=== PATIENT | female | born 1955 | race Caucasian/White ===

== ENCOUNTER 2017-09-26 15:17 | Inpatient (IN) | payer BC, MEDICAID ==
[~2017-09-26] VITALS: Ht 152.4 cm; Wt 69.9 kg
[2017-09-26 15:42] VITALS: BP 118/92
--- NOTE | 2017-09-26 16:19 | Diagnostic Imaging Report ---
Indication: Dyspnea Comparison: None A single view chest radiograph was obtained. Findings: Lungs are clear. Lower thoracic and upper lumbar fusion kaity multilevel pedicle screws noted. Bones are osteopenic. Heart is borderline enlarged. IMPRESSION: No acute disease
[2017-09-26 16:53] LABS: BASOPHILS % (AUTO) 1.2 % (0.0-2.0); EOSINOPHILS % (AUTO) 5.2 % (0.0-3.0); HEMATOCRIT 42.6 % (37.0-47.0); HEMOGLOBIN 13.7 G/DL (12.0-16.0); LYMPHOCYTES % (AUTO) 29.7 % (20.0-45.0); MEAN CORPUSCULAR VOLUME 93 FL (80-99); MONOCYTES % (AUTO) 8.7 % (1.0-10.0); NEUTROPHILS % (AUTO) 55.1 % (45.0-75.0); PLATELET COUNT 242 K/UL (150-450); RED BLOOD COUNT 4.56 M/UL (4.20-5.40); RED CELL DISTRIBUTION WIDTH 14.4 % (11.6-14.8); WHITE BLOOD COUNT 8.7 K/UL (4.8-10.8)
[2017-09-26 17:03] LABS: ANION GAP 3 mmol/L (5-15); BLOOD UREA NITROGEN 18 mg/dL (7-18); CALCIUM 9.1 MG/DL (8.5-10.1); CARBON DIOXIDE 34 MMOL/L (21-32); CHLORIDE 100 MMOL/L (98-107); CREATININE 0.7 MG/DL (0.55-1.30); POTASSIUM 5.5 MMOL/L (3.5-5.1); SODIUM 137 MMOL/L (136-145)
[2017-09-26 17:16] LABS: ALANINE AMINOTRANSFERASE 40 U/L (12-78); ALBUMIN 3.3 G/DL (3.4-5.0); ALBUMIN/GLOBULIN RATIO 0.8 (1.0-2.7); ALKALINE PHOSPHATASE 147 U/L (46-116); ASPARTATE AMINO TRANSFERASE 53 U/L (15-37); BILIRUBIN,TOTAL 0.3 MG/DL (0.2-1.0); CREATINE KINASE 162 U/L (26-308)
[2017-09-26] MEDS ORDERED: CENTRUM SILVER1 EAC6 PO (18:18)
[2017-09-26] MEDS ORDERED: DOXEPIN HCL25 MG ORAL (18:18)
[2017-09-26] MEDS ORDERED: AZELASTINE HCL6 ML OP (18:18)
[2017-09-26] MEDS ORDERED: ESTAZOLAM2 MG PO (18:18)
[2017-09-26] MEDS ORDERED: OMEPRAZOLE20 M2 ORAL (18:18)
[2017-09-26] MEDS ORDERED: HYDROCODON-ACE1 EA13 ORAL (18:18)
[2017-09-26] MEDS ORDERED: DOCUSATE SODIU100 MG ORAL (18:18)
[2017-09-26] MEDS ORDERED: KLONOPIN0.5 MG ORAL (18:18)
[2017-09-26] MEDS ORDERED: BUTRANS1 EAC1 TD (18:18)
[2017-09-26] MEDS ORDERED: VENLAFAXINE HCL75 MG ORAL (18:18)
[2017-09-26] MEDS ORDERED: ACETAMINOPHEN-1 EAC4 ORAL (18:18)
[2017-09-26] MEDS ORDERED: ATENOLOL25 MG ORAL (18:18)
[2017-09-26] MEDS ORDERED: ZYRTEC10 MG ORAL (18:18)
[2017-09-26] MEDS ORDERED: LYRICA75 M1 ORAL (18:18)
[2017-09-26] MEDS ORDERED: WELLBUTRIN XL150 M3 ORAL (18:18)
[2017-09-26] MEDS ORDERED: QUETIAPINE FUMA50 MG ORAL (18:18)
[2017-09-26] MEDS ORDERED: LEVOTHYROXINE112 MCG ORAL (18:18)
[2017-09-26] MEDS ORDERED: METOCLOPRA10 MG/10 M ORAL (18:18)
[2017-09-26 18:23] VITALS: BP 123/87
--- NOTE | 2017-09-26 20:00 | Emergency Room Report ---
History of Present Illness General Chief Complaint: Dyspnea/Respdistress Source: Patient Present Illness HPI Patient presents with complaints of shortness of breath Hallucinations Patient's primary physician had referred the patient to a home furnishings sales representative Patient was found to be hypoxic and sent to the ER Here the patient denies any chest pain however does feel short of breath especially with exertion patient has had significant kyphosis with previous back trauma and reports several surgeries Patient also reports that she has been trying to get set up for further surgeries Denies any abdominal pain denies any focal weakness Denies any recent travel or pleurisy Patient does currently 'vape' Allergies: Coded Allergies: ERYTHROMYCIN BASE (Verified Allergy, Unknown, 09/26/17) IBUPROFEN (Verified Allergy, Unknown, 09/26/17) PENICILLINS (Verified Allergy, Unknown, 09/26/17) SULFAMETHOXAZOLE (Verified Allergy, Unknown, 09/26/17) TETRACYCLINES (Verified Allergy, Unknown, 09/26/17) TRIMETHOPRIM (Verified Allergy, Unknown, 09/26/17) Patient History Past Medical History: see triage record Pertinent Family History: none Reviewed Nursing Documentation: PMH: Agreed; PSxH: Agreed Nursing Documentation-PMH Past Medical History: No History, Except For Hx Gastrointestinal Problems: Yes - GERD Hx Neurological Problems: Yes - Depression Review of Systems All Other Systems: negative except mentioned in HPI Physical Exam Vital Signs Date Time Temp Pulse Resp B/P (MAP) Pulse Ox O2 Delivery O2 Flow Rate FiO2 09/26/17 15:26 98.9 69 14 118/92 80 Room Air 99.0 09/26/17 15:42 3.0 Sp02 EP Interpretation: reviewed, normal, abnormal - Interpreted as low at 80% , on 2 L nasal cannula patient saturates at 94% which is normal Head: normocephalic, atraumatic Eyes: bilateral eye PERRL ENT: hearing grossly normal, normal pharynx Neck: other - Patient has significant kyphosis Respiratory: crackles - In both lower lobes no obvious retraction Cardiovascular #1: normal peripheral pulses, no edema, no gallop Gastrointestinal: non tender, soft Musculoskeletal: other - Patient has significant kyphosis with also scoliosis, 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 Neurologic: alert, oriented x3, responsive Skin: normal color, no rash Lymphatic: no adenopathy Medical Decision Making Diagnostic Impression: Primary Impression: Dyspnea Additional Impression: Hypoxia ER Course Patient is a fairly complex patient with multiple differential to consideration including but not limited to cardiac cardiopulmonary and vascular emergencies Patient's presentation is concerning given the hypoxia ABG and CT imaging is obtained there is no evidence of central pulmonary embolism however radiology did contact regarding what appears to be unstable spine please refer to the CT report Clinically the patient has had significant recent medical history including multiple surgeries Hypoxia is unlikely related to acute procedure Patient does show CO2 retention At this time requires admission and further inpatient care patient appears to have compensated somewhat and BiPAP was not emergently ordered Labs Test 09/26/17 16:24 09/26/17 16:33 White Blood Count 8.7 K/UL (4.8-10.8) Red Blood Count 4.56 M/UL (4.20-5.40) Hemoglobin 13.7 G/DL (12.0-16.0) Hematocrit 42.6 % (37.0-47.0) Mean Corpuscular Volume 93 FL (80-99) Mean Corpuscular Hemoglobin 30.0 PG (27.0-31.0) Mean Corpuscular Hemoglobin Concent 32.1 G/DL (32.0-36.0) Red Cell Distribution Width 14.4 % (11.6-14.8) Platelet Count 242 K/UL (150-450) Mean Platelet Volume 6.8 FL (6.5-10.1) Neutrophils (%) (Auto) 55.1 % (45.0-75.0) Lymphocytes (%) (Auto) 29.7 % (20.0-45.0) Monocytes (%) (Auto) 8.7 % (1.0-10.0) Eosinophils (%) (Auto) 5.2 % (0.0-3.0) Basophils (%) (Auto) 1.2 % (0.0-2.0) Sodium Level 137 MMOL/L (136-145) Potassium Level 5.5 MMOL/L (3.5-5.1) Chloride Level 100 MMOL/L (98-107) Carbon Dioxide Level 34 MMOL/L (21-32) Anion Gap 3 mmol/L (5-15) Blood Urea Nitrogen 18 mg/dL (7-18) Creatinine 0.7 MG/DL (0.55-1.30) Estimat Glomerular Filtration Rate > 60 mL/min (>60) Glucose Level 86 MG/DL (74-106) Calcium Level 9.1 MG/DL (8.5-10.1) Total Bilirubin 0.3 MG/DL (0.2-1.0) Aspartate Amino Transf (AST/SGOT) 53 U/L (15-37) Alanine Aminotransferase (ALT/SGPT) 40 U/L (12-78) Alkaline Phosphatase 147 U/L (46-116) Total Creatine Kinase 162 U/L (26-308) Creatine Kinase MB 3.0 NG/ML (0.0-3.6) Creatine Kinase MB Relative Index 1.8 Troponin I 0.000 ng/mL (0.000-0.056) Pro-B-Type Natriuretic Peptide 113 pg/mL (0-125) Total Protein 7.7 G/DL (6.4-8.2) Albumin 3.3 G/DL (3.4-5.0) Globulin 4.4 g/dL Albumin/Globulin Ratio 0.8 (1.0-2.7) Lipase 126 U/L (73-393) Arterial Blood pH 7.350 (7.350-7.450) Arterial Blood Partial Pressure CO2 63.5 mmHg (35.0-45.0) Arterial Blood Partial Pressure O2 58.0 mmHg (75.0-100.0) Arterial Blood HCO3 34.5 mmol/L (22.0-26.0) Arterial Blood Oxygen Saturation 88.1 % (92.0-98.0) Arterial Blood Base Excess 6.7 Erick Test Positive Rhythm Strip Diag. Results EP Interpretation: yes Rate: 88 Rhythm: NSR, no PVC's, no ectopy Chest X-Ray Diagnostic Results Chest X-Ray Diagnostic Results : Chest X-Ray Ordered: Yes # of Views/Limited/Complete: 1 View Indication: Chest Pain EP Interpretation: Yes Interpretation: no consolidation, no effusion, no pneumothorax Impression: No acute disease Electronically Signed by: Arleth Perez, DO CT/MRI/US Diagnostic Results CT/MRI/US Diagnostic Results : Impression CTA thorax no central pulmonary ambles him kyphosis at T9-T10 step-off and associated spinal stenosis standing of the posterior elements widening of the right facet screws from the spinal fixation extend through the disc space with surrounding lucencies could suggest underlying loosening or infection fragmentation/fractures of uncertain chronicity Last Vital Signs Date Time Temp Pulse Resp B/P (MAP) Pulse Ox O2 Delivery O2 Flow Rate FiO2 09/26/17 18:35 98.9 86 14 123/87 96 Nasal Cannula 2.0 98.9 Status: improved Disposition: ADMITTED INPATIENT Condition: Serious Referrals: NON PHYSICIAN (PCP) Arleth Perez DO Sep 26, 2017 20:00
[2017-09-26] MEDS ORDERED: Milk of Magnesia 30ml Ud ORAL PRN (20:15)
[2017-09-26] MEDS ORDERED: clonazePAM 0.5mg tab ORAL SCH (20:15)
[2017-09-26 21:12] VITALS: BP 106/71
[2017-09-26] MEDS: Solu-MEDROL 125mg Inj IVP SCH (22:32)
[2017-09-26] MEDS: HYDROcodone/Acetamin 10/325 tab ORAL PRN (22:32)
[2017-09-26] MEDS: Heparin 5000 units/ml inj SUBQ SCH (22:33)
[2017-09-26] MEDS ORDERED: clonazePAM 0.5mg tab ORAL PRN ×2 (22:45)
[2017-09-26] MEDS: Albuterol/Ipratropium 3ml neb HHN SCH (23:00)
[2017-09-27] VITALS: BP 120/84
[2017-09-27] MEDS: Metoclopramide 10mg/10ml Liq ORAL SCH ×5 (00:50→23:51)
[2017-09-27] MEDS: Albuterol/Ipratropium 3ml neb HHN SCH ×6 (02:55→22:53)
[2017-09-27 04:00] VITALS: BP 113/80
[2017-09-27 08:00] VITALS: BP 116/69
--- NOTE | 2017-09-27 09:01 | History & Physical ---
History and Physical History & Physicial 61 year old patient presents with complaints of shortness of breath and hypoxemia Patient was sent to the ER for ongoing low oxygen saturation. Patient unaware of lung disease and sleep apnea diagnosis. patient in wheelchair. patient is not taking any inhalers. patient denies any chest pain however does feel short of breath especially with exertion patient has had significant kyphosis with previous back trauma and reports several surgeries Patient has had hypoxemia prior to initiation of recent surgery. Denies any abdominal pain denies any focal weakness Denies any recent travel or pleurisy Patient does currently 'vape' Allergies: ERYTHROMYCIN BASE (Verified Allergy, Unknown, 09/26/17) IBUPROFEN (Verified Allergy, Unknown, 09/26/17) PENICILLINS (Verified Allergy, Unknown, 09/26/17) SULFAMETHOXAZOLE (Verified Allergy, Unknown, 09/26/17) TETRACYCLINES (Verified Allergy, Unknown, 09/26/17) TRIMETHOPRIM (Verified Allergy, Unknown, 09/26/17) Past Medical History: GERD, prior back surgeries, depression, hypothyroid, obesity Pertinent Family History: none contributory Reviewed of systems: all reviewed Physical WDWN NAD reduced breath sounds bilaterally without rhonchi or wheeze [id number] without MRG NABS nontender no HSM no CC mild edema nonfocal; weak Laboratory Tests Test 09/26/17 16:24 09/26/17 16:33 09/27/17 08:00 White Blood Count 8.7 K/UL (4.8-10.8) Red Blood Count 4.56 M/UL (4.20-5.40) Hemoglobin 13.7 G/DL (12.0-16.0) Hematocrit 42.6 % (37.0-47.0) Mean Corpuscular Volume 93 FL (80-99) Mean Corpuscular Hemoglobin 30.0 PG (27.0-31.0) Mean Corpuscular Hemoglobin Concent 32.1 G/DL (32.0-36.0) Red Cell Distribution Width 14.4 % (11.6-14.8) Platelet Count 242 K/UL (150-450) Mean Platelet Volume 6.8 FL (6.5-10.1) Neutrophils (%) (Auto) 55.1 % (45.0-75.0) Lymphocytes (%) (Auto) 29.7 % (20.0-45.0) Monocytes (%) (Auto) 8.7 % (1.0-10.0) Eosinophils (%) (Auto) 5.2 % (0.0-3.0) H Basophils (%) (Auto) 1.2 % (0.0-2.0) Sodium Level 137 MMOL/L (136-145) Potassium Level 5.5 MMOL/L (3.5-5.1) H Chloride Level 100 MMOL/L (98-107) Carbon Dioxide Level 34 MMOL/L (21-32) H Anion Gap 3 mmol/L (5-15) L Blood Urea Nitrogen 18 mg/dL (7-18) Creatinine 0.7 MG/DL (0.55-1.30) Estimat Glomerular Filtration Rate > 60 mL/min (>60) Glucose Level 86 MG/DL (74-106) Calcium Level 9.1 MG/DL (8.5-10.1) Total Bilirubin 0.3 MG/DL (0.2-1.0) Aspartate Amino Transf (AST/SGOT) 53 U/L (15-37) H Alanine Aminotransferase (ALT/SGPT) 40 U/L (12-78) Alkaline Phosphatase 147 U/L (46-116) H Total Creatine Kinase 162 U/L (26-308) Creatine Kinase MB 3.0 NG/ML (0.0-3.6) Creatine Kinase MB Relative Index 1.8 Troponin I 0.000 ng/mL (0.000-0.056) Pro-B-Type Natriuretic Peptide 113 pg/mL (0-125) Total Protein 7.7 G/DL (6.4-8.2) Albumin 3.3 G/DL (3.4-5.0) L Globulin 4.4 g/dL Albumin/Globulin Ratio 0.8 (1.0-2.7) L Lipase 126 U/L (73-393) Arterial Blood pH 7.350 (7.350-7.450) 7.310 (7.350-7.450) Arterial Blood Partial Pressure CO2 63.5 mmHg (35.0-45.0) *H 64.3 mmHg (35.0-45.0) *H Arterial Blood Partial Pressure O2 58.0 mmHg (75.0-100.0) L 54.6 mmHg (75.0-100.0) L Arterial Blood HCO3 34.5 mmol/L (22.0-26.0) H 32.6 mmol/L (22.0-26.0) H Arterial Blood Oxygen Saturation 88.1 % (92.0-98.0) L 85.9 % (92.0-98.0) L Arterial Blood Base Excess 6.7 4.0 Erick Test Positive Positive IMPRESSION probable sleep apnea hypoxemia hypercapnia obesity hypothyroid acute respiratory failure hypercapnia PLAN BIPAP nightly will need trilogy for chronic respiratory failure sleep study needed nebulizer therapy will arrange discuss with patient in detail impression, plan, and exam edited and reviewed in detail care discussed with ZAKIA SMITH Sep 27, 2017 09:01
[2017-09-27] MEDS: Solu-MEDROL 125mg Inj IVP SCH ×2 (09:03→21:33)
[2017-09-27] MEDS: HYDROcodone/Acetamin 10/325 tab ORAL PRN ×2 (09:03→21:33)
[2017-09-27] MEDS: Heparin 5000 units/ml inj SUBQ SCH ×2 (09:06→21:34)
[2017-09-27] MEDS: Atenolol 25mg tab ORAL SCH (09:06)
[2017-09-27] MEDS: Lyrica 75mg cap ORAL SCH ×3 (09:07→17:17)
[2017-09-27] MEDS: Docusate 100mg cap ORAL SCH (09:08)
[2017-09-27] MEDS: BuPROPion SR 100mg tab ORAL SCH (09:11)
[2017-09-27] MEDS ORDERED: Sodium Polystyrene Sulfonate 15gm Powder ORAL ONE (11:54)
[2017-09-27 12:00] VITALS: BP 104/54
--- NOTE | 2017-09-27 12:45 | Cardiology Report ---
APPROVED REPORT EKG Measurement Heart [id number] CT [id number] [id number] Normal sinus rhythm Low voltage QRS Borderline ECG
--- NOTE | 2017-09-27 14:44 | Diagnostic Imaging Report ---
Indication: Shortness of breath Technique: CT pulmonary angiogram performed utilizing automated exposure control with intravenous contrast. Axial, sagittal and coronal reconstructions were obtained. 3-D volumetric reconstructions were also performed. CT dose: Total DLP 765.14 mGycm; CTDI vol 26.39 mGy Comparison: No prior CT of the chest available for comparison Findings: There is adequate opacification of the pulmonary arteries. No pulmonary embolism identified. Main pulmonary artery normal size. No evidence of thoracic aortic aneurysm or dissection, although streak artifact from spinal hardware limits evaluation of the distal thoracic and proximal abdominal aorta. There is conventional branching anatomy of the great vessels, the Melina proximal portions which are patent. There is no focal airspace consolidation suggest pneumonia. There are dependent atelectatic changes and linear atelectasis/scarring in the middle lobe. There are some scattered pulmonary nodules. For example in the periphery of the right upper lobe there is a 5 mm nodule (series 8 image #20). Additional 4 mm nodule in the right upper lobe is noted on series 8 image #50. There is a 6 mm pleural-based nodule in the superior segment of the right lower lobe (series 8 image #55). No pleural effusion or pneumothorax. There are bilateral breast implants. Thyroid unremarkable in appearance. Heart size within normal limits. There is no pericardial effusion. No appreciable pathologically enlarged lymphadenopathy. There is a cyst in the right lobe of the liver. Otherwise, imaged portions of the upper abdomen grossly unremarkable. There is severe focal kyphosis at T9-T10 with approximately 3 to 4 mm step-off and associated spinal canal stenosis. There is fanning of the posterior elements and widening of the right facet/lateral mass. The screw from fixation hardware appears to extends to the disc space at this level. There may be some lucencies about the screws, most pronounced at the superior most screw on the left (series 7 image #66 ). Underlying loosening or infection not excluded. There is some fragmentation/fractures of uncertain chronicity versus postsurgical change at T10. IMPRESSION: No evidence of pulmonary embolism. No thoracic aortic aneurysm or dissection. Multiple scattered pulmonary nodules measuring up to 6 mm. Follow-up exam in 6 months recommended to assess stability. Evidence of prior spinal surgery with severe focal kyphosis at T9-T10 of uncertain chronicity. There is associated bony spinal canal stenosis at this level. Some lucency about the screws noted. Loosening or infection not entirely excluded. Clinical correlation recommended. Further imaging with MRI may be obtained for better evaluation as clinically indicated. This corresponds with the statrad preliminary report. The CT scanner at [facility] is accredited by the [employer] and the scans are performed using protocols designed to limit radiation exposure to as low as reasonably achievable to attain images of sufficient resolution adequate for diagnostic evaluation.
[2017-09-27 15:46] VITALS: BP 109/65
[2017-09-27] MEDS ORDERED: Venlafaxine HCl 37.5mg Tab ORAL SCH (16:30)
[2017-09-27 20:00] VITALS: BP 104/60
[2017-09-28] VITALS: BP 114/68
[2017-09-28] MEDS: Albuterol/Ipratropium 3ml neb HHN SCH ×6 (03:02→23:00)
[2017-09-28 04:00] VITALS: BP 94/57
[2017-09-28] MEDS: Metoclopramide 10mg/10ml Liq ORAL SCH ×3 (05:53→17:47)
[2017-09-28 08:00] VITALS: BP 99/58
--- NOTE | 2017-09-28 08:51 | General Progress Note ---
Assessment/Plan Assessment/Plan IMPRESSION probable sleep apnea hypoxemia hypercapnia obesity hypothyroid acute on chronic respiratory failure hypercapnia PLAN will need trilogy for chronic respiratory failure sleep study needed nebulizer therapy as is will arrange for home oxygen and trilogy discuss with patient in detail has chronic respiratory failure and chronic hypoventilation impression, plan, and exam edited and reviewed in detail care discussed with RN CONSIDERED BIPAP BUT NOT SUFFICIENT. WILL ORDER TRILOGY NIV DUE TO AVAPS AND MOUTHPIECE VENTILATION SUPPORT BIPAP IS NOT SUFFICIENT. PATIENT REQUIRES TRILOGY NIV TO PREVENT OBTAINING A TRACHEOSTOMY AND TO PREVENT READMISSION. NIV NEEDED FOR PORTABILITY AND DUAL RX ; NIGHT USE AND MOUTHPIECE VENTILATION SUPPORT NEEDED TO MAINTAIN A BETTER QUALITY OF LIFE Subjective Allergies: Coded Allergies: ERYTHROMYCIN BASE (Verified Allergy, Unknown, 09/26/17) IBUPROFEN (Verified Allergy, Unknown, 09/26/17) PENICILLINS (Verified Allergy, Unknown, 09/26/17) SULFAMETHOXAZOLE (Verified Allergy, Unknown, 09/26/17) TETRACYCLINES (Verified Allergy, Unknown, 09/26/17) TRIMETHOPRIM (Verified Allergy, Unknown, 09/26/17) Subjective much improved Objective Last 24 Hour Vital Signs Date Time Temp Pulse Resp B/P (MAP) Pulse Ox O2 Delivery O2 Flow Rate FiO2 09/28/17 08:05 79 20 94 Nasal Cannula 3.0 09/28/17 07:55 77 20 95 Nasal Cannula 3.0 09/28/17 07:53 Nasal Cannula 3.0 09/28/17 07:53 94 Nasal Cannula 3.0 09/28/17 04:00 97.9 73 19 94/57 94 Bi-pap 97.9 09/28/17 04:00 68 09/28/17 04:00 4.0 09/28/17 03:12 66 19 95 Bi-pap 50 09/28/17 03:02 63 18 93 Bi-pap 50 09/28/17 03:02 63 18 93 Facial 50 09/28/17 00:30 72 20 95 Facial 50 09/28/17 00:00 50 09/28/17 00:00 98.1 90 21 114/68 92 Bi-pap 98.1 09/28/17 00:00 87 09/27/17 23:03 80 20 94 Nasal Cannula 4.0 36 09/27/17 22:53 79 20 92 Nasal Cannula 4.0 36 09/27/17 20:00 70 09/27/17 20:00 4.0 09/27/17 20:00 97.0 79 22 104/60 93 Nasal Cannula 2.0 97.0 09/27/17 19:15 70 18 93 Nasal Cannula 4.0 36 09/27/17 19:05 Nasal Cannula 4.0 36 09/27/17 19:05 68 18 91 Nasal Cannula 4.0 36 09/27/17 19:05 91 Nasal Cannula 4.0 36 09/27/17 18:16 97.5 09/27/17 17:17 97.5 09/27/17 16:00 62 09/27/17 16:00 50 09/27/17 15:47 60 18 92 Facial 50 09/27/17 15:46 97.5 63 18 109/65 91 Bi-pap 40 97.5 09/27/17 15:45 63 18 94 Bi-pap 50 09/27/17 15:40 40 09/27/17 15:40 61 18 91 Bi-pap 40 09/27/17 13:20 60 18 92 Facial 40 09/27/17 12:21 97.0 09/27/17 12:00 97.6 66 18 104/54 95 Bi-pap 97.6 09/27/17 12:00 64 09/27/17 12:00 40 09/27/17 11:22 68 18 94 Bi-pap 40 09/27/17 11:14 60 18 92 Facial 40 09/27/17 11:13 40 09/27/17 11:12 60 14 92 Bi-pap 40 09/27/17 10:52 97.0 09/27/17 09:07 97.0 09/27/17 09:06 81 116/69 09/27/17 09:03 97.0 Intake and Output 09/27/17 09/28/17 19:00 07:00 Intake Total 400 ml Balance 400 ml Intake Oral 400 ml # Voids 7 Labs Test 09/26/17 16:24 09/26/17 16:33 09/27/17 08:00 09/28/17 08:20 White Blood Count 8.7 K/UL (4.8-10.8) Red Blood Count 4.56 M/UL (4.20-5.40) Hemoglobin 13.7 G/DL (12.0-16.0) Hematocrit 42.6 % (37.0-47.0) Mean Corpuscular Volume 93 FL (80-99) Mean Corpuscular Hemoglobin 30.0 PG (27.0-31.0) Mean Corpuscular Hemoglobin Concent 32.1 G/DL (32.0-36.0) Red Cell Distribution Width 14.4 % (11.6-14.8) Platelet Count 242 K/UL (150-450) Mean Platelet Volume 6.8 FL (6.5-10.1) Neutrophils (%) (Auto) 55.1 % (45.0-75.0) Lymphocytes (%) (Auto) 29.7 % (20.0-45.0) Monocytes (%) (Auto) 8.7 % (1.0-10.0) Eosinophils (%) (Auto) 5.2 % (0.0-3.0) Basophils (%) (Auto) 1.2 % (0.0-2.0) Sodium Level 137 MMOL/L (136-145) 137 MMOL/L (136-145) Potassium Level 5.5 MMOL/L (3.5-5.1) 3.6 MMOL/L (3.5-5.1) Chloride Level 100 MMOL/L (98-107) 96 MMOL/L (98-107) Carbon Dioxide Level 34 MMOL/L (21-32) 34 MMOL/L (21-32) Anion Gap 3 mmol/L (5-15) 7 mmol/L (5-15) Blood Urea Nitrogen 18 mg/dL (7-18) 23 mg/dL (7-18) Creatinine 0.7 MG/DL (0.55-1.30) 1.1 MG/DL (0.55-1.30) Estimat Glomerular Filtration Rate > 60 mL/min (>60) 50.7 mL/min (>60) Glucose Level 86 MG/DL (74-106) 159 MG/DL (74-106) Calcium Level 9.1 MG/DL (8.5-10.1) 8.7 MG/DL (8.5-10.1) Total Bilirubin 0.3 MG/DL (0.2-1.0) Aspartate Amino Transf (AST/SGOT) 53 U/L (15-37) Alanine Aminotransferase (ALT/SGPT) 40 U/L (12-78) Alkaline Phosphatase 147 U/L (46-116) Total Creatine Kinase 162 U/L (26-308) Creatine Kinase MB 3.0 NG/ML (0.0-3.6) Creatine Kinase MB Relative Index 1.8 Troponin I 0.000 ng/mL (0.000-0.056) Pro-B-Type Natriuretic Peptide 113 pg/mL (0-125) Total Protein 7.7 G/DL (6.4-8.2) Albumin 3.3 G/DL (3.4-5.0) Globulin 4.4 g/dL Albumin/Globulin Ratio 0.8 (1.0-2.7) Lipase 126 U/L (73-393) Arterial Blood pH 7.350 (7.350-7.450) 7.310 (7.350-7.450) Arterial Blood Partial Pressure CO2 63.5 mmHg (35.0-45.0) 64.3 mmHg (35.0-45.0) Arterial Blood Partial Pressure O2 58.0 mmHg (75.0-100.0) 54.6 mmHg (75.0-100.0) Arterial Blood HCO3 34.5 mmol/L (22.0-26.0) 32.6 mmol/L (22.0-26.0) Arterial Blood Oxygen Saturation 88.1 % (92.0-98.0) 85.9 % (92.0-98.0) Arterial Blood Base Excess 6.7 4.0 Erick Test Positive Positive Height (Feet): 5 Height (Inches): 0.00 Weight (Pounds): 154 Objective WDWN NAD clear breath sounds bilaterally without rhonchi or wheeze [id number] without MRG NABS nontender no HSM no CC mild edema weak wheelchair ZAKIA COWAN Sep 28, 2017 08:51
[2017-09-28] MEDS: Atenolol 25mg tab ORAL SCH (09:00)
[2017-09-28 09:30] LABS: ANION GAP 7 mmol/L (5-15); BLOOD UREA NITROGEN 23 mg/dL (7-18); CALCIUM 8.7 MG/DL (8.5-10.1); CARBON DIOXIDE 34 MMOL/L (21-32); CHLORIDE 96 MMOL/L (98-107); CREATININE 1.1 MG/DL (0.55-1.30); POTASSIUM 3.6 MMOL/L (3.5-5.1); SODIUM 137 MMOL/L (136-145)
[2017-09-28] MEDS: BuPROPion SR 100mg tab ORAL SCH (10:01)
[2017-09-28] MEDS: Docusate 100mg cap ORAL SCH (10:02)
[2017-09-28] MEDS: Lyrica 75mg cap ORAL SCH ×3 (10:09→22:25)
[2017-09-28] MEDS: Solu-MEDROL 125mg Inj IVP SCH ×2 (10:10→21:14)
[2017-09-28] MEDS: Heparin 5000 units/ml inj SUBQ SCH ×2 (10:10→22:28)
[2017-09-28 12:00] VITALS: BP 102/68
[2017-09-28] MEDS ORDERED: Milk of Magnesia 30ml Ud ORAL PRN (14:00)
[2017-09-28 15:31] VITALS: BP 120/78
--- NOTE | 2017-09-28 15:54 | History & Physical ---
History and Physical History & Physicial History and Physical Narrative Patient Name: Sultana Dos Santos Unit Number: [id number] Date of : 1955 Patient Status: Admitted Inpatient Attending Doctor: Zakia Villarreal History and Physical History and Physical History & Physicial 61 year old patient presents with complaints of shortness of breath and hypoxemia Patient was sent to the ER for ongoing low oxygen saturation. Patient unaware of lung disease and sleep apnea diagnosis. patient in wheelchair. patient is not taking any inhalers. patient denies any chest pain however does feel short of breath especially with exertion patient has had significant kyphosis with previous back trauma and reports several surgeries Patient has had hypoxemia prior to initiation of recent surgery. Denies any abdominal pain denies any focal weakness Denies any recent travel or pleurisy Patient does currently 'vape' Allergies: ERYTHROMYCIN BASE (Verified Allergy, Unknown, 09/26/17) IBUPROFEN (Verified Allergy, Unknown, 09/26/17) PENICILLINS (Verified Allergy, Unknown, 09/26/17) SULFAMETHOXAZOLE (Verified Allergy, Unknown, 09/26/17) TETRACYCLINES (Verified Allergy, Unknown, 09/26/17) TRIMETHOPRIM (Verified Allergy, Unknown, 09/26/17) Past Medical History: GERD, prior back surgeries, depression, hypothyroid, obesity Pertinent Family History: none contributory Reviewed of systems: all reviewed Physical WDWN NAD reduced breath sounds bilaterally without rhonchi or wheeze [id number] without MRG NABS nontender no HSM no CC mild edema nonfocal; weak Laboratory Tests Test 09/26/17 16:24 09/26/17 16:33 09/27/17 08:00 White Blood Count 8.7 K/UL (4.8-10.8) Red Blood Count 4.56 M/UL (4.20-5.40) Hemoglobin 13.7 G/DL (12.0-16.0) Hematocrit 42.6 % (37.0-47.0) Mean Corpuscular Volume 93 FL (80-99) Mean Corpuscular Hemoglobin 30.0 PG (27.0-31.0) Mean Corpuscular Hemoglobin Concent 32.1 G/DL (32.0-36.0) Red Cell Distribution Width 14.4 % (11.6-14.8) Platelet Count 242 K/UL (150-450) Mean Platelet Volume 6.8 FL (6.5-10.1) Neutrophils (%) (Auto) 55.1 % (45.0-75.0) Lymphocytes (%) (Auto) 29.7 % (20.0-45.0) Monocytes (%) (Auto) 8.7 % (1.0-10.0) Eosinophils (%) (Auto) 5.2 % (0.0-3.0) H Basophils (%) (Auto) 1.2 % (0.0-2.0) Sodium Level 137 MMOL/L (136-145) Potassium Level 5.5 MMOL/L (3.5-5.1) H Chloride Level 100 MMOL/L (98-107) Carbon Dioxide Level 34 MMOL/L (21-32) H Anion Gap 3 mmol/L (5-15) L Blood Urea Nitrogen 18 mg/dL (7-18) Creatinine 0.7 MG/DL (0.55-1.30) Estimat Glomerular Filtration Rate > 60 mL/min (>60) Glucose Level 86 MG/DL (74-106) Calcium Level 9.1 MG/DL (8.5-10.1) Total Bilirubin 0.3 MG/DL (0.2-1.0) Aspartate Amino Transf (AST/SGOT) 53 U/L (15-37) H Alanine Aminotransferase (ALT/SGPT) 40 U/L (12-78) Alkaline Phosphatase 147 U/L (46-116) H Total Creatine Kinase 162 U/L (26-308) Creatine Kinase MB 3.0 NG/ML (0.0-3.6) Creatine Kinase MB Relative Index 1.8 Troponin I 0.000 ng/mL (0.000-0.056) Pro-B-Type Natriuretic Peptide 113 pg/mL (0-125) Total Protein 7.7 G/DL (6.4-8.2) Albumin 3.3 G/DL (3.4-5.0) L Globulin 4.4 g/dL Albumin/Globulin Ratio 0.8 (1.0-2.7) L Lipase 126 U/L (73-393) Arterial Blood pH 7.350 (7.350-7.450) 7.310 (7.350-7.450) Arterial Blood Partial Pressure CO2 63.5 mmHg (35.0-45.0) *H 64.3 mmHg (35.0-45.0) *H Arterial Blood Partial Pressure O2 58.0 mmHg (75.0-100.0) L 54.6 mmHg (75.0-100.0) L Arterial Blood HCO3 34.5 mmol/L (22.0-26.0) H 32.6 mmol/L (22.0-26.0) H Arterial Blood Oxygen Saturation 88.1 % (92.0-98.0) L 85.9 % (92.0-98.0) L Arterial Blood Base Excess 6.7 4.0 Erick Test Positive Positive IMPRESSION probable sleep apnea hypoxemia hypercapnia obesity hypothyroid Chronic respiratory failure hypercapnia COPD PLAN Patient has COPD and chronic respiratory failure sleep apnea BIPAP not sufficient will order trilogy NIV for AVAPS AE and mouth piece ventilation support will also order home oxygen ZAKIA VILLARREAL Sep 28, 2017 15:54
[2017-09-28] MEDS: Venlafaxine HCl 37.5mg Tab ORAL SCH (17:46)
[2017-09-28] MEDS: HYDROcodone/Acetamin 10/325 tab ORAL PRN (18:55)
[2017-09-28 20:00] VITALS: BP 105/72
[2017-09-29] VITALS: BP 116/70
[2017-09-29] MEDS: Metoclopramide 10mg/10ml Liq ORAL SCH ×4 (00:17→17:03)
[2017-09-29] MEDS: clonazePAM 0.5mg tab ORAL PRN (00:22)
[2017-09-29] MEDS: Albuterol/Ipratropium 3ml neb HHN SCH ×6 (03:00→23:12)
[2017-09-29 04:00] VITALS: BP 124/84
[2017-09-29] MEDS: Lyrica 75mg cap ORAL SCH ×3 (06:01→22:32)
[2017-09-29] MEDS: HYDROcodone/Acetamin 10/325 tab ORAL PRN ×2 (06:05→15:49)
[2017-09-29 08:02] VITALS: BP 139/92
[2017-09-29] MEDS: Atenolol 25mg tab ORAL SCH (08:19)
[2017-09-29] MEDS: Docusate 100mg cap ORAL SCH (08:20)
[2017-09-29] MEDS: BuPROPion SR 100mg tab ORAL SCH (08:20)
[2017-09-29] MEDS: Heparin 5000 units/ml inj SUBQ SCH ×2 (08:25→21:18)
[2017-09-29] MEDS: Solu-MEDROL 125mg Inj IVP SCH ×2 (08:53→20:21)
--- NOTE | 2017-09-29 09:39 | General Progress Note ---
Assessment/Plan Assessment/Plan IMPRESSION probable sleep apnea hypoxemia hypercapnia obesity hypothyroid acute on chronic respiratory failure hypercapnia PLAN will need trilogy for chronic respiratory failure sleep study needed nebulizer therapy as is will arrange for home oxygen and trilogy discuss with patient in detail has chronic respiratory failure and chronic hypoventilation impression, plan, and exam edited and reviewed in detail care discussed with RN CONSIDERED BIPAP BUT NOT SUFFICIENT. WILL ORDER TRILOGY NIV DUE TO AVAPS AND MOUTHPIECE VENTILATION SUPPORT BIPAP IS NOT SUFFICIENT. PATIENT REQUIRES TRILOGY NIV TO PREVENT OBTAINING A TRACHEOSTOMY AND TO PREVENT READMISSION. NIV NEEDED FOR PORTABILITY AND DUAL RX ; NIGHT USE AND MOUTHPIECE VENTILATION SUPPORT NEEDED TO MAINTAIN A BETTER QUALITY OF LIFE Subjective Allergies: Coded Allergies: ERYTHROMYCIN BASE (Verified Allergy, Unknown, 09/26/17) IBUPROFEN (Verified Allergy, Unknown, 09/26/17) PENICILLINS (Verified Allergy, Unknown, 09/26/17) SULFAMETHOXAZOLE (Verified Allergy, Unknown, 09/26/17) TETRACYCLINES (Verified Allergy, Unknown, 09/26/17) TRIMETHOPRIM (Verified Allergy, Unknown, 09/26/17) Subjective stable awaiting trilogy and oxygen Objective Last 24 Hour Vital Signs Date Time Temp Pulse Resp B/P (MAP) Pulse Ox O2 Delivery O2 Flow Rate FiO2 09/29/17 08:19 90 139/92 09/29/17 08:02 98.1 90 22 139/92 92 98.1 09/29/17 07:00 98.1 09/29/17 07:00 98.1 09/29/17 06:05 98.1 09/29/17 06:01 98.1 09/29/17 04:00 98.1 73 18 124/84 91 98.1 09/29/17 03:39 Nasal Cannula 09/29/17 03:39 Nasal Cannula 09/29/17 00:02 Nasal Cannula 09/29/17 00:02 Nasal Cannula 09/29/17 00:00 97.9 71 17 116/70 91 97.9 09/28/17 22:25 98.1 09/28/17 20:25 Nasal Cannula 09/28/17 20:24 Nasal Cannula 09/28/17 20:23 95 Nasal Cannula 3.0 09/28/17 20:23 Nasal Cannula 3.0 09/28/17 20:00 98.1 79 18 105/72 95 98.1 09/28/17 18:55 97.5 09/28/17 15:31 97.5 101 18 120/78 95 97.5 09/28/17 14:40 80 20 94 Nasal Cannula 3.0 09/28/17 14:30 77 20 92 Nasal Cannula 3.0 09/28/17 14:05 98.2 09/28/17 13:06 98.2 09/28/17 12:00 3.0 09/28/17 12:00 97.5 106 18 102/68 98 Nasal Cannula 2.0 97.5 09/28/17 11:44 76 20 94 Nasal Cannula 3.0 09/28/17 11:34 72 18 93 Nasal Cannula 3.0 09/28/17 10:09 98.2 Intake and Output 09/28/17 09/29/17 19:00 07:00 Intake Total 556 ml 600 ml Balance 556 ml 600 ml Intake Oral 556 ml 600 ml # Voids 3 4 Height (Feet): 5 Height (Inches): 0.00 Weight (Pounds): 154 Objective WDWN NAD clear breath sounds bilaterally without rhonchi or wheeze [id number] without MRG NABS nontender no HSM no CC mild edema weak wheelchair ZAKIA COWAN Sep 29, 2017 09:39
[2017-09-29 11:32] VITALS: BP 133/85
[2017-09-29 15:40] VITALS: BP 125/72
[2017-09-29] MEDS: Venlafaxine HCl 37.5mg Tab ORAL SCH (17:03)
[2017-09-29 19:56] VITALS: BP 115/76
[2017-09-30] VITALS: BP 112/72
[2017-09-30] MEDS: Metoclopramide 10mg/10ml Liq ORAL SCH ×5 (00:23→23:29)
[2017-09-30] MEDS: clonazePAM 0.5mg tab ORAL PRN ×2 (01:00→23:32)
[2017-09-30] MEDS: Albuterol/Ipratropium 3ml neb HHN SCH ×6 (03:25→22:53)
[2017-09-30 04:00] VITALS: BP 107/65
[2017-09-30] MEDS: Lyrica 75mg cap ORAL SCH ×3 (06:22→22:28)
[2017-09-30 08:58] VITALS: BP 107/67
[2017-09-30] MEDS: Atenolol 25mg tab ORAL SCH (09:00)
[2017-09-30] MEDS: Docusate 100mg cap ORAL SCH (09:17)
[2017-09-30] MEDS: Solu-MEDROL 125mg Inj IVP SCH ×2 (09:17→20:56)
[2017-09-30] MEDS: BuPROPion SR 100mg tab ORAL SCH (09:17)
[2017-09-30] MEDS: Heparin 5000 units/ml inj SUBQ SCH ×2 (09:18→21:06)
--- NOTE | 2017-09-30 10:29 | General Progress Note ---
Assessment/Plan Assessment/Plan IMPRESSION probable sleep apnea hypoxemia hypercapnia obesity hypothyroid acute on chronic respiratory failure hypercapnia PLAN will need trilogy for chronic respiratory failure sleep study needed after discharge nebulizer therapy as is will arrange for home oxygen and trilogy- still not approved discuss with patient in detail has chronic respiratory failure and chronic hypoventilation impression, plan, and exam edited and reviewed in detail Subjective Allergies: Coded Allergies: ERYTHROMYCIN BASE (Verified Allergy, Unknown, 09/26/17) IBUPROFEN (Verified Allergy, Unknown, 09/26/17) PENICILLINS (Verified Allergy, Unknown, 09/26/17) SULFAMETHOXAZOLE (Verified Allergy, Unknown, 09/26/17) TETRACYCLINES (Verified Allergy, Unknown, 09/26/17) TRIMETHOPRIM (Verified Allergy, Unknown, 09/26/17) Subjective stable awaiting trilogy and oxygen Objective Last 24 Hour Vital Signs Date Time Temp Pulse Resp B/P (MAP) Pulse Ox O2 Delivery O2 Flow Rate FiO2 09/30/17 08:58 97.0 80 18 107/67 92 Nasal Cannula 3.0 97.0 09/30/17 08:33 88 18 100 Nasal Cannula 3.0 32 09/30/17 08:15 84 20 97 Room Air 3.0 32 09/30/17 08:14 Nasal Cannula 3.0 32 09/30/17 08:14 97 Nasal Cannula 3.0 32 09/30/17 06:22 98.2 09/30/17 04:00 97.7 60 20 107/65 93 Room Air 97.7 09/30/17 03:46 Nasal Cannula 09/30/17 03:45 Room Air 09/30/17 00:00 98.2 72 20 112/72 93 98.2 09/29/17 23:31 97.9 09/29/17 23:21 65 20 98 Nasal Cannula 3.0 32 09/29/17 23:13 61 20 97 Room Air 3.0 32 09/29/17 22:32 97.9 09/29/17 20:12 95 Nasal Cannula 3.0 32 09/29/17 20:12 Nasal Cannula 3.0 32 09/29/17 20:12 Nasal Cannula 3.0 32 09/29/17 20:11 Nasal Cannula 3.0 32 09/29/17 19:56 97.9 84 17 115/76 96 Room Air 97.9 09/29/17 16:48 97.9 09/29/17 15:49 97.9 09/29/17 15:40 97.9 73 20 125/72 94 97.9 09/29/17 15:40 67 20 95 Nasal Cannula 3.0 09/29/17 15:40 Nasal Cannula 2.0 09/29/17 15:30 64 20 91 Nasal Cannula 3.0 09/29/17 14:41 97.3 09/29/17 11:45 62 18 96 Nasal Cannula 3.0 09/29/17 11:35 59 22 94 Nasal Cannula 3.0 09/29/17 11:32 Nasal Cannula 2.0 09/29/17 11:32 97.3 56 20 133/85 94 97.3 Intake and Output 09/29/17 09/30/17 19:00 07:00 Intake Total 960 ml 780 ml Balance 960 ml 780 ml Intake Oral 960 ml 780 ml # Voids 5 3 Height (Feet): 5 Height (Inches): 0.00 Weight (Pounds): 154 Objective WDWN NAD clear breath sounds bilaterally without rhonchi or wheeze [id number] without MRG NABS nontender no HSM no CC mild edema weak wheelchair ZAKIA COWAN Sep 30, 2017 10:29
[2017-09-30 12:12] VITALS: BP 106/66
[2017-09-30] MEDS: HYDROcodone/Acetamin 10/325 tab ORAL PRN ×2 (14:23→20:56)
[2017-09-30 16:00] VITALS: BP 126/80
[2017-09-30] MEDS: Venlafaxine HCl 37.5mg Tab ORAL SCH (17:20)
[2017-09-30 20:00] VITALS: BP 130/84
[2017-10-01 00:01] VITALS: BP 134/92
[2017-10-01] MEDS: Albuterol/Ipratropium 3ml neb HHN SCH ×4 (02:45→15:00)
[2017-10-01 04:00] VITALS: BP 115/69
[2017-10-01] MEDS: Metoclopramide 10mg/10ml Liq ORAL SCH ×2 (06:13→12:00)
[2017-10-01] MEDS: Lyrica 75mg cap ORAL SCH ×2 (06:13→13:58)
[2017-10-01 08:00] VITALS: BP 113/62
--- NOTE | 2017-10-01 08:47 | General Progress Note ---
Assessment/Plan Assessment/Plan IMPRESSION probable sleep apnea hypoxemia hypercapnia obesity hypothyroid acute on chronic respiratory failure hypercapnia PLAN will need trilogy for chronic respiratory failure sleep study needed after discharge nebulizer therapy as is will arrange for home oxygen and trilogy- still not approved discuss with patient in detail has chronic respiratory failure and chronic hypoventilation impression, plan, and exam edited and reviewed in detail Subjective Allergies: Coded Allergies: ERYTHROMYCIN BASE (Verified Allergy, Unknown, 09/26/17) IBUPROFEN (Verified Allergy, Unknown, 09/26/17) PENICILLINS (Verified Allergy, Unknown, 09/26/17) SULFAMETHOXAZOLE (Verified Allergy, Unknown, 09/26/17) TETRACYCLINES (Verified Allergy, Unknown, 09/26/17) TRIMETHOPRIM (Verified Allergy, Unknown, 09/26/17) Subjective stable awaiting trilogy and oxygen approval Objective Last 24 Hour Vital Signs Date Time Temp Pulse Resp B/P (MAP) Pulse Ox O2 Delivery O2 Flow Rate FiO2 10/01/17 06:13 97.9 10/01/17 04:00 97.9 75 18 115/69 93 97.9 10/01/17 02:54 70 20 98 Nasal Cannula 3.0 32 10/01/17 02:45 32 10/01/17 02:45 70 20 98 Nasal Cannula 3.0 32 10/01/17 00:01 97.7 68 20 134/92 98 Room Air 97.7 09/30/17 23:27 98.1 09/30/17 23:04 95 17 95 Nasal Cannula 3.0 32 09/30/17 22:51 32 09/30/17 22:51 95 17 95 Nasal Cannula 3.0 32 09/30/17 22:28 98.1 09/30/17 22:16 Nasal Cannula 09/30/17 22:14 Nasal Cannula 09/30/17 21:55 98.1 09/30/17 21:26 95 Nasal Cannula 3.0 32 09/30/17 21:26 Nasal Cannula 3.0 32 09/30/17 20:56 98.1 09/30/17 20:00 98.1 95 17 130/84 95 98.1 09/30/17 16:00 97.9 68 18 126/80 93 Nasal Cannula 3.0 97.9 09/30/17 15:29 83 18 100 Nasal Cannula 3.0 32 09/30/17 15:19 82 20 98 Room Air 3.0 32 09/30/17 12:12 98.2 62 18 106/66 92 Nasal Cannula 3.0 98.2 09/30/17 11:31 85 18 100 Nasal Cannula 3.0 32 09/30/17 11:20 80 20 98 Room Air 3.0 32 09/30/17 09:00 62 106/66 09/30/17 08:58 97.0 80 18 107/67 92 Nasal Cannula 3.0 97.0 Intake and Output 09/30/17 10/01/17 19:00 07:00 Intake Total 600 ml 1040 ml Balance 600 ml 1040 ml Intake Oral 600 ml 1040 ml # Voids 6 3 # Bowel Movements 2 1 Height (Feet): 5 Height (Inches): 0.00 Weight (Pounds): 154 Objective WDWN NAD clear breath sounds bilaterally without rhonchi or wheeze [id number] without MRG NABS nontender no HSM no CC mild edema weak wheelchair ZAKIA COWAN Oct 01, 2017 08:47
[2017-10-01] MEDS: BuPROPion SR 100mg tab ORAL SCH (09:58)
[2017-10-01] MEDS: Solu-MEDROL 125mg Inj IVP SCH (09:59)
[2017-10-01] MEDS: Atenolol 25mg tab ORAL SCH (09:59)
[2017-10-01] MEDS: Heparin 5000 units/ml inj SUBQ SCH (10:05)
[2017-10-01] MEDS: Docusate 100mg cap ORAL SCH (10:06)
[2017-10-01 12:00] VITALS: BP 140/92
--- NOTE | 2017-10-02 13:18 | Discharge Summary ---
Discharge Summary Discharge Summary Discharge Summary DATE OF ADMISSION: 09/26/2017 DATE OF DISCHARGE: 2017 REASON FOR ADMISSION: 61 years old female with a history of depression and GERD, presented with complaints of shortness of breath and hypoxemia. Patient was sent to the emergency room for ongoing low oxygen saturation. Patient was not aware of any lung disease and sleep apnea diagnosis. Patient was in a wheelchair. Patient was not on any inhalers at home. Patient denied chest pain, however felt short of breath, especially with exertion. Patient has significant kyphosis and reported several back surgeries. Patient had hypoxemia prior to initiation of recent surgery. She denied abdominal pain, denied any focal weakness. She denied any recent travel or pleurisy. Physical exam demonstrated reduced breath sounds bilaterally without rhonchi or wheezing. Laboratory workup revealed stable hemoglobin and hematocrit, no leukocytosis. Vital signs were stable , except hypoxemia. Patient saturated 80% on room air. Troponin negative. EKG revealed normal sinus rhythm, no acute ischemic changes. Pro BNP -113. Chest x-ray revealed no acute cardiopulmonary pathology. CTA of the chest revealed no evidence of pulmonary emboli. No thoracic aortic aneurysm or dissection. CT demonstrated however, multiple pulmonary nodules up to 6 mm. Recommended follow-up in 6 months. ABG showed PCO2 of 63.5 . Patient admitted with diagnoses acute on chronic respiratory failure,COPD ,hypoxemia, probable sleep apnea ,hypercapnia, obesity, hypothyroidism. HOSPITAL COURSE: Patient admitted and started on the BiPAP at nighttime. Patient will need sleep study as an outpatient. Nebulizing therapy was provided as needed. Home medications were resumed. BiPAP was not sufficient. Patient required triology noninvasive ventilation to prevent tracheostomy and to prevent readmissions. Subsequently NIV was ordered with the AVAPS AE mode and mouthpiece form for ventilation support. Noninvasive ventilation will accomplish dual therapy while maintaining portability and [id number]. Patient was closely observed and managed in the hospital until all arrangements were made for home. Subsequently triology noninvasive ventilation system was arranged. Patient was stable for discharge home with home health services FINAL DIAGNOSES: Acute on chronic respiratory failure. Probable sleep apnea. Hypoxemia. Hypercapnia. Obesity. Hypothyroidism. DISCHARGE MEDICATIONS: See Medication Reconciliation list. DISCHARGE INSTRUCTIONS: Patient was discharged home with home health services. Triology noninvasive ventilation was arranged to be delivered prior to patient coming home. Patient recommended to have sleep study as outpatient. Patient to continue with the noninvasive ventilator mode as prescribed by hand tacker. Follow-up with a hand tacker in one week I have been assigned to dictate discharge summary for this account. I was not involved in the patient's management. Asia Foster NP ([place]) Oct 02, 2017 13:18
== END 2017-10-01 14:05 | disposition home health service (06) | DRG 189 ==
LOC: EMR 16:00 → 2E 17:18 → EDBEDREQ 17:38 → 2E 22:22 → 4W 09-28 13:51
PROC: 5A09357 Assistance with Respiratory Ventilation, Less than 24 Consecutive Hours, Continuous Positive Airway Pressure (ICD-10-PCS; principal; 2017-09-27)
DX: J96.21 Acute and chronic respiratory failure with hypoxia (principal); E66.9 Obesity, unspecified; G47.30 Sleep apnea, unspecified; E03.9 Hypothyroidism, unspecified; Z88.6 Allergy status to analgesic agent; Z88.1 Allergy status to other antibiotic agents; Z88.0 Allergy status to penicillin; Z88.2 Allergy status to sulfonamides; Z88.8 Allergy status to other drugs, medicaments and biological substances; K21.9 Gastro-esophageal reflux disease without esophagitis; J44.9 Chronic obstructive pulmonary disease, unspecified; R06.89 Other abnormalities of breathing
CPT/HCPCS: 36415; 36600; 71045; 71275; 80048; 80053; 82550; 82553; 82803; 83690; 83880; 84484; 85025; 86710; 93005; 94640; 94660; 94664; 94760; 99285; J7620